=== PATIENT | male | born 1935 | race Caucasian/White ===

== ENCOUNTER 2017-07-22 05:45 | Outpatient (CLI) | payer MEDICARE, OTHER ==
[2017-07-22 07:02] LABS: HEMATOCRIT 35.9 % (39.0-53.0); HEMOGLOBIN 11.6 g/dL (13.0-17.5); MEAN CORPUSCULAR HEMOGLOBIN 32 pg (25-35); MEAN CORPUSCULAR HGB CONC 32 g/dL (31-37); MEAN CORPUSCULAR VOLUME 98 fL (79-100); PLATELET COUNT 117 x10^3/uL (140-400); RED BLOOD COUNT 3.67 x10^6/uL (4.30-5.70); RED CELL DISTRIBUTION WIDTH 16.6 % (11.5-14.5)
[2017-07-22 07:08] LABS: ANION GAP 8 (6-14); BLOOD UREA NITROGEN 24 mg/dL (8-26); CALCIUM 8.4 mg/dL (8.5-10.1); CARBON DIOXIDE 27 mmol/L (21-32); CHLORIDE 109 mmol/L (98-107); CREATININE 1.7 mg/dL (0.7-1.3); GFR 38.7; GLUCOSE 157 mg/dL (70-99); POTASSIUM 4.2 mmol/L (3.5-5.1); SODIUM 144 mmol/L (136-145)
[2017-07-22 07:16] LABS: INR 1.1 (0.8-1.1); PROTHROMBIN TIME PATIENT 13.2 SEC (11.7-14.0)
[2017-07-22] MEDS ORDERED: LIDOCAINE 2% 20 ML VIAL. (07:16)
[2017-07-22] MEDS ORDERED: IODIXANOL 320 MG/ML 100 ML VIAL. (07:16)
[2017-07-22] MEDS ORDERED: fentaNYL PF VIAL 100 MCG/2 ML VIAL (07:56)
[2017-07-22] MEDS ORDERED: MIDAZOLAM HCL/PF 2 MG/2 ML VIAL. (07:56)
[2017-07-22] MEDS: MIDAZOLAM HCL/PF 2 MG/2 ML VIAL. IV (08:30)
[2017-07-22] MEDS: IODIXANOL 320 MG/ML 100 ML VIAL. IART (08:30)
[2017-07-22] MEDS: LIDOCAINE 2% 20 ML VIAL. IJ (08:30)
[2017-07-22] MEDS: fentaNYL PF VIAL 100 MCG/2 ML VIAL IV (08:30)
== END 2017-07-22 14:15 | disposition home or self-care (01) ==
LOC: CCL 05:45
DX: I25.10 Atherosclerotic heart disease of native coronary artery without angina pectoris (principal); I27.20 Pulmonary hypertension, unspecified; E11.42 Type 2 diabetes mellitus with diabetic polyneuropathy; E78.00 Pure hypercholesterolemia, unspecified; E66.9 Obesity, unspecified; F17.200 Nicotine dependence, unspecified, uncomplicated; I48.0 Paroxysmal atrial fibrillation; I11.0 Hypertensive heart disease with heart failure; I50.40 Unspecified combined systolic (congestive) and diastolic (congestive) heart failure; Z98.42 Cataract extraction status, left eye; Z98.41 Cataract extraction status, right eye; Z87.01 Personal history of pneumonia (recurrent); Z98.890 Other specified postprocedural states; Z88.8 Allergy status to other drugs, medicaments and biological substances; Z83.3 Family history of diabetes mellitus; Z82.49 Family history of ischemic heart disease and other diseases of the circulatory system; Z79.82 Long term (current) use of aspirin; Z79.4 Long term (current) use of insulin; Z68.38 Body mass index [BMI] 38.0-38.9, adult
CPT/HCPCS: 36415; 80048; 85027; 85610; 93453; 99152; 99153; C1713; C1769; C1773; C1892; G0269; J1644; J2250; J3010

== ENCOUNTER 2017-09-14 23:59 | Inpatient (IN) | payer MEDICARE, OTHER ==
[2017-09-15 01:21] LABS: POC GLUCOSE 45 mg/dL (70-99)
[2017-09-15] MEDS: PREGABALIN 50 MG CAPSULE PO ×2 (01:40→20:50)
[2017-09-15 02:25] LABS: POC GLUCOSE 70 mg/dL (70-99)
[2017-09-15 08:09] LABS: BASE EXCESS ABG 0 mmol/L (-3-3); HCO3 ABG 26 mmol/L (21-28); PCO2 ABG 48 mmHg (35-46); PH ABG 7.35 (7.35-7.45); PO2 ABG 73 mmHg (65-108); SAT O2 ABG 93 % (92-99)
[2017-09-15 08:25] LABS: POC GLUCOSE 94 mg/dL (70-99)
[2017-09-15] MEDS: FUROSEMIDE 40 MG/4 ML VIAL. IVP (08:55)
[2017-09-15] MEDS ORDERED: hydrALAZINE 20 MG/ML VIAL. IVP (09:00)
[2017-09-15] MEDS ORDERED: DEXTROSE 50% 25 GM / 50ML DISP.SYRIN. IV (09:00)
[2017-09-15] MEDS ORDERED: DOCUSATE SODIUM 100 MG CAPSULE. PO (09:00)
[2017-09-15] MEDS ORDERED: ONDANSETRON PF 4 MG/2 ML VIAL. IV (09:00)
[2017-09-15 09:03] LABS: ADD MAN DIFF? NO
[2017-09-15 09:10] LABS: BASO % 0 % (0-3); EOS # 0.1 x10^3/uL (0.0-0.7); EOS % 2 % (0-3); HEMATOCRIT 31.3 % (39.0-53.0); LYMPH % 18 % (24-48); MEAN CORPUSCULAR HEMOGLOBIN 31 pg (25-35); MEAN CORPUSCULAR HGB CONC 32 g/dL (31-37); MEAN CORPUSCULAR VOLUME 97 fL (79-100); MONO # 0.8 x10^3/uL (0.0-1.1); MONO % 14 % (0-9); NEUT # 3.7 x10^3uL (1.8-7.7); NEUT % 66 % (31-73); PLATELET COUNT 105 x10^3/uL (140-400); RED BLOOD COUNT 3.23 x10^6/uL (4.30-5.70); RED CELL DISTRIBUTION WIDTH 16.9 % (11.5-14.5); WHITE BLOOD COUNT 5.6 x10^3/uL (4.0-11.0)
[2017-09-15 09:23] LABS: ALBUMIN 2.7 g/dL (3.4-5.0); ALBUMIN/GLOBULIN RATIO 0.6 (1.0-1.7); ALK PHOS 88 U/L (46-116); ALT (SGPT) 23 U/L (16-63); ANION GAP 6 (6-14); AST (SGOT) 24 U/L (15-37); BLOOD UREA NITROGEN 22 mg/dL (8-26); BUN/CREATININE RATIO 16 (6-20); CALCIUM 8.5 mg/dL (8.5-10.1); CARBON DIOXIDE 29 mmol/L (21-32); CHLORIDE 110 mmol/L (98-107); CHOLESTEROL 62 mg/dL (0-200); CREATININE 1.4 mg/dL (0.7-1.3); GFR 48.4; GLUCOSE 95 mg/dL (70-99); HDLC 25 mg/dL (40-60); LDLC 20 mg/dL (0-100); NON-HDL CHOLESTEROL 37 mg/dL (0-129); SODIUM 145 mmol/L (136-145); TOTAL BILIRUBIN 0.6 mg/dL (0.2-1.0); TOTAL PROTEIN 7.2 g/dL (6.4-8.2); TRIGLYCERIDES 84 mg/dL (0-150); VLDLC 17 mg/dL (0-40)
[2017-09-15 09:24] LABS: CHOLESTEROL/HDL RATIO 2.5
[2017-09-15 09:30] LABS: DIRECT BILIRUBIN 0.2 mg/dL (0.0-0.2)
[2017-09-15] MEDS: ENOXAPARIN 40 MG/0.4 ML SYRINGE. SQ (10:58)
[2017-09-15] MEDS ORDERED: PERFLUTREN PROTEIN-A MICROSPHR 0.22 MG/ML 3 ML VIAL. IV (11:10)
[2017-09-15] MEDS: INSULIN ASPART 300 UNITS/3 ML INSULN.PEN SQ ×2 (12:00→17:00)
[2017-09-15] MEDS ORDERED: GEMFIBROZIL 600 MG TABLET. PO (12:00)
[2017-09-15 12:05] LABS: POC GLUCOSE 133 mg/dL (70-99)
[2017-09-15 13:52] LABS: MAGNESIUM 2.3 mg/dL (1.8-2.4)
[2017-09-15] MEDS: PROPRANOLOL 40 MG TABLET. PO ×2 (13:56→20:50)
[2017-09-15] MEDS: POTASSIUM CHLORIDE 20 MEQ TABLET.ER. PO (13:57)
[2017-09-15] MEDS: ISOSORBIDE MONONITRATE ER 30 MG TAB.ER.24H PO (13:57)
[2017-09-15] MEDS: TOPIRAMATE 25 MG TABLET. PO ×2 (13:57→20:50)
[2017-09-15] MEDS: ASPIRIN ENTERIC COATED 81 MG TABLET.DR. PO (13:58)
[2017-09-15] MEDS: LISINOPRIL 5 MG TABLET. PO (13:58)
[2017-09-15] MEDS ORDERED: BUMETANIDE 1 MG TABLET. PO (14:00)
[2017-09-15 14:07] LABS: THYROID STIM HORMONE (TSH) 1.502 uIU/mL (0.358-3.74)
[2017-09-15] MEDS: BUMETANIDE 1 MG/4 ML VIAL. IV (15:57)
[2017-09-15] MEDS: OMEGA-3 FATTY ACIDS/FISH OIL 1,000 MG CAPSULE. PO ×2 (15:57→20:50)
[2017-09-15 16:46] LABS: FIO2 ABG 36
[2017-09-15 18:05] LABS: POC GLUCOSE 146 mg/dL (70-99)
[2017-09-15] MEDS: ATORVASTATIN CALCIUM 40 MG TABLET. PO (20:50)
[2017-09-15] MEDS: TAMSULOSIN 0.4 MG CAP.ER.24H. PO (20:50)
[2017-09-15] MEDS: traMADol 50 MG TABLET PO (20:51)
[2017-09-15] MEDS ORDERED: TORSEMIDE 20 MG TABLET. PO (21:00)
[2017-09-15 23:13] LABS: MRSA BY PCR Negative (Negative)
[2017-09-16 06:19] LABS: ADD MAN DIFF? NO
[2017-09-16 06:42] LABS: ANION GAP 7 (6-14); BLOOD UREA NITROGEN 24 mg/dL (8-26); CALCIUM 8.1 mg/dL (8.5-10.1); CARBON DIOXIDE 29 mmol/L (21-32); CHLORIDE 111 mmol/L (98-107); CREATININE 1.4 mg/dL (0.7-1.3); GFR 48.4; GLUCOSE 108 mg/dL (70-99); POTASSIUM 3.7 mmol/L (3.5-5.1); SODIUM 147 mmol/L (136-145)
[2017-09-16 06:49] LABS: BASO % 1 % (0-3); EOS # 0.1 x10^3/uL (0.0-0.7); EOS % 2 % (0-3); HEMATOCRIT 30.2 % (39.0-53.0); HEMOGLOBIN 9.6 g/dL (13.0-17.5); LYMPH # 1.1 x10^3/uL (1.0-4.8); LYMPH % 21 % (24-48); MEAN CORPUSCULAR HEMOGLOBIN 31 pg (25-35); MEAN CORPUSCULAR HGB CONC 32 g/dL (31-37); MEAN CORPUSCULAR VOLUME 97 fL (79-100); MONO # 0.7 x10^3/uL (0.0-1.1); MONO % 14 % (0-9); NEUT # 3.3 x10^3uL (1.8-7.7); NEUT % 63 % (31-73); PLATELET COUNT 109 x10^3/uL (140-400); RED BLOOD COUNT 3.11 x10^6/uL (4.30-5.70); RED CELL DISTRIBUTION WIDTH 17.5 % (11.5-14.5); WHITE BLOOD COUNT 5.2 x10^3/uL (4.0-11.0)
[2017-09-16] MEDS: INSULIN ASPART 300 UNITS/3 ML INSULN.PEN SQ ×3 (07:37→17:00)
[2017-09-16] MEDS: OMEGA-3 FATTY ACIDS/FISH OIL 1,000 MG CAPSULE. PO ×2 (08:27→20:12)
[2017-09-16] MEDS: ISOSORBIDE MONONITRATE ER 30 MG TAB.ER.24H PO (08:28)
[2017-09-16] MEDS: LISINOPRIL 5 MG TABLET. PO (08:28)
[2017-09-16] MEDS: POTASSIUM CHLORIDE 20 MEQ TABLET.ER. PO (08:28)
[2017-09-16] MEDS: ASPIRIN ENTERIC COATED 81 MG TABLET.DR. PO (08:29)
[2017-09-16] MEDS: TOPIRAMATE 25 MG TABLET. PO ×2 (08:29→20:13)
[2017-09-16] MEDS: PROPRANOLOL 40 MG TABLET. PO ×2 (08:29→20:12)
[2017-09-16] MEDS: ENOXAPARIN 40 MG/0.4 ML SYRINGE. SQ (08:31)
[2017-09-16] MEDS: BUMETANIDE 1 MG/4 ML VIAL. IV (08:31)
[2017-09-16 09:23] LABS: POC GLUCOSE 95 mg/dL (70-99)
[2017-09-16] MEDS ORDERED: VANCOMYCIN PER PHARMACY MC (10:30)
[2017-09-16 10:57] LABS: POC GLUCOSE 148 mg/dL (70-99)
[2017-09-16] MEDS: VANCOMYCIN 2 GM in IV DEXTROSE 5% 500 ML IV (12:07)
[2017-09-16] MEDS: metOLazone 2.5 MG TABLET PO (15:23)
[2017-09-16] MEDS: ALBUMIN HUMAN 25% 100 ML IV (16:38)
[2017-09-16 17:43] LABS: POC GLUCOSE 150 mg/dL (70-99)
[2017-09-16] MEDS: BUMETANIDE 2.5 MG/10 ML VIAL. IV (17:53)
[2017-09-16] MEDS: ACETAMINOPHEN 325 MG TABLET. PO (17:56)
[2017-09-16] MEDS: ATORVASTATIN CALCIUM 40 MG TABLET. PO (20:13)
[2017-09-16] MEDS: TAMSULOSIN 0.4 MG CAP.ER.24H. PO (20:13)
[2017-09-16] MEDS: PREGABALIN 50 MG CAPSULE PO (20:14)
[2017-09-16] MEDS: traMADol 50 MG TABLET PO (21:00)
[2017-09-16 21:17] LABS: POC GLUCOSE 166 mg/dL (70-99)
[2017-09-17 04:22] LABS: ADD MAN DIFF? NO
[2017-09-17 05:10] LABS: BASO % 1 % (0-3); EOS # 0.1 x10^3/uL (0.0-0.7); EOS % 2 % (0-3); HEMATOCRIT 28.3 % (39.0-53.0); HEMOGLOBIN 9.2 g/dL (13.0-17.5); LYMPH # 1.1 x10^3/uL (1.0-4.8); LYMPH % 23 % (24-48); MEAN CORPUSCULAR HEMOGLOBIN 32 pg (25-35); MEAN CORPUSCULAR HGB CONC 33 g/dL (31-37); MEAN CORPUSCULAR VOLUME 97 fL (79-100); MONO # 0.7 x10^3/uL (0.0-1.1); MONO % 15 % (0-9); NEUT # 2.9 x10^3uL (1.8-7.7); NEUT % 60 % (31-73); PLATELET COUNT 98 x10^3/uL (140-400); RED BLOOD COUNT 2.91 x10^6/uL (4.30-5.70); RED CELL DISTRIBUTION WIDTH 17.6 % (11.5-14.5); WHITE BLOOD COUNT 4.9 x10^3/uL (4.0-11.0)
[2017-09-17 05:33] LABS: ANION GAP 9 (6-14); BLOOD UREA NITROGEN 28 mg/dL (8-26); CALCIUM 8.5 mg/dL (8.5-10.1); CARBON DIOXIDE 27 mmol/L (21-32); CHLORIDE 109 mmol/L (98-107); CREATININE 1.6 mg/dL (0.7-1.3); GFR 41.5; GLUCOSE 131 mg/dL (70-99); POTASSIUM 3.8 mmol/L (3.5-5.1); SODIUM 145 mmol/L (136-145)
[2017-09-17 07:16] LABS: POC GLUCOSE 123 mg/dL (70-99)
[2017-09-17] MEDS: INSULIN ASPART 300 UNITS/3 ML INSULN.PEN SQ ×3 (07:46→17:53)
[2017-09-17] MEDS: ACETAMINOPHEN 325 MG TABLET. PO (08:35)
[2017-09-17] MEDS: POTASSIUM CHLORIDE 20 MEQ TABLET.ER. PO (08:36)
[2017-09-17] MEDS: LISINOPRIL 5 MG TABLET. PO (08:36)
[2017-09-17] MEDS: PROPRANOLOL 40 MG TABLET. PO ×2 (08:37→21:46)
[2017-09-17] MEDS: TOPIRAMATE 25 MG TABLET. PO ×2 (08:37→21:46)
[2017-09-17] MEDS: ASPIRIN ENTERIC COATED 81 MG TABLET.DR. PO (08:37)
[2017-09-17] MEDS: ENOXAPARIN 40 MG/0.4 ML SYRINGE. SQ (08:37)
[2017-09-17] MEDS: ISOSORBIDE MONONITRATE ER 30 MG TAB.ER.24H PO (08:39)
[2017-09-17] MEDS: OMEGA-3 FATTY ACIDS/FISH OIL 1,000 MG CAPSULE. PO ×2 (08:42→21:45)
[2017-09-17] MEDS ORDERED: BUMETANIDE 2.5 MG/10 ML VIAL. IV (09:00)
[2017-09-17] MEDS: BUMETANIDE 1 MG/4 ML VIAL. IV (09:00)
[2017-09-17] MEDS: VANCOMYCIN PER PHARMACY MC (10:44)
[2017-09-17] MEDS: VANCOMYCIN 1.5 GM in IV 1/2 NORMAL SALINE 500 ML IV (11:34)
[2017-09-17 11:49] LABS: POC GLUCOSE 208 mg/dL (70-99)
[2017-09-17] MEDS ORDERED: VANCOMYCIN 1.5 GM in IV 1/2 NORMAL SALINE 500 ML IV (12:00)
[2017-09-17] MEDS: FUROSEMIDE 40 MG/4 ML VIAL. IVP (13:01)
[2017-09-17 14:29] LABS: HEMOGLOBIN A1C 5.8 % (4.8-5.6)
[2017-09-17 16:53] LABS: POC GLUCOSE 152 mg/dL (70-99)
[2017-09-17 21:13] LABS: POC GLUCOSE 208 mg/dL (70-99)
[2017-09-17] MEDS: TAMSULOSIN 0.4 MG CAP.ER.24H. PO (21:45)
[2017-09-17] MEDS: ATORVASTATIN CALCIUM 40 MG TABLET. PO (21:45)
[2017-09-17] MEDS: PREGABALIN 50 MG CAPSULE PO (21:48)
[2017-09-18] MEDS: traMADol 50 MG TABLET PO (02:09)
[2017-09-18] MEDS: MORPHINE SULFATE 4 MG/ML DISP.SYRIN. IV (02:09)
[2017-09-18 04:29] LABS: ADD MAN DIFF? NO
[2017-09-18 04:33] LABS: BASO % 0 % (0-3); EOS # 0.1 x10^3/uL (0.0-0.7); EOS % 3 % (0-3); HEMATOCRIT 27.8 % (39.0-53.0); LYMPH % 25 % (24-48); MEAN CORPUSCULAR HEMOGLOBIN 31 pg (25-35); MEAN CORPUSCULAR HGB CONC 32 g/dL (31-37); MEAN CORPUSCULAR VOLUME 97 fL (79-100); MONO # 0.5 x10^3/uL (0.0-1.1); MONO % 14 % (0-9); NEUT # 2.3 x10^3uL (1.8-7.7); NEUT % 59 % (31-73); PLATELET COUNT 98 x10^3/uL (140-400); RED BLOOD COUNT 2.88 x10^6/uL (4.30-5.70); RED CELL DISTRIBUTION WIDTH 16.6 % (11.5-14.5)
[2017-09-18 04:47] LABS: ANION GAP 3 (6-14); BLOOD UREA NITROGEN 28 mg/dL (8-26); CALCIUM 8.9 mg/dL (8.5-10.1); CARBON DIOXIDE 33 mmol/L (21-32); CHLORIDE 108 mmol/L (98-107); CREATININE 1.4 mg/dL (0.7-1.3); GFR 48.4; GLUCOSE 167 mg/dL (70-99); POTASSIUM 3.9 mmol/L (3.5-5.1); SODIUM 144 mmol/L (136-145)
[2017-09-18 07:55] LABS: POC GLUCOSE 137 mg/dL (70-99)
[2017-09-18] MEDS: INSULIN ASPART 300 UNITS/3 ML INSULN.PEN SQ ×3 (08:00→17:00)
[2017-09-18] MEDS: ISOSORBIDE MONONITRATE ER 30 MG TAB.ER.24H PO (09:01)
[2017-09-18] MEDS: POTASSIUM CHLORIDE 20 MEQ TABLET.ER. PO (09:01)
[2017-09-18] MEDS: ASPIRIN ENTERIC COATED 81 MG TABLET.DR. PO (09:01)
[2017-09-18] MEDS: OMEGA-3 FATTY ACIDS/FISH OIL 1,000 MG CAPSULE. PO ×2 (09:01→21:23)
[2017-09-18] MEDS: PROPRANOLOL 40 MG TABLET. PO ×2 (09:02→21:24)
[2017-09-18] MEDS: LISINOPRIL 5 MG TABLET. PO (09:02)
[2017-09-18] MEDS: TOPIRAMATE 25 MG TABLET. PO ×2 (09:02→21:25)
[2017-09-18] MEDS: FUROSEMIDE 40 MG/4 ML VIAL. IVP ×2 (09:03→14:27)
[2017-09-18] MEDS: ENOXAPARIN 40 MG/0.4 ML SYRINGE. SQ (09:04)
[2017-09-18 11:54] LABS: POC GLUCOSE 168 mg/dL (70-99)
[2017-09-18 16:55] LABS: POC GLUCOSE 186 mg/dL (70-99)
[2017-09-18] MEDS: PREGABALIN 50 MG CAPSULE PO (21:24)
[2017-09-18] MEDS: TAMSULOSIN 0.4 MG CAP.ER.24H. PO (21:24)
[2017-09-18] MEDS: ATORVASTATIN CALCIUM 40 MG TABLET. PO (21:24)
[2017-09-18 21:33] LABS: POC GLUCOSE 185 mg/dL (70-99)
[2017-09-19 05:40] LABS: ANION GAP 8 (6-14); BLOOD UREA NITROGEN 35 mg/dL (8-26); CALCIUM 8.5 mg/dL (8.5-10.1); CARBON DIOXIDE 31 mmol/L (21-32); CHLORIDE 106 mmol/L (98-107); CREATININE 1.6 mg/dL (0.7-1.3); GFR 41.5; GLUCOSE 164 mg/dL (70-99); POTASSIUM 3.8 mmol/L (3.5-5.1); SODIUM 145 mmol/L (136-145)
[2017-09-19] MEDS: INSULIN ASPART 300 UNITS/3 ML INSULN.PEN SQ ×3 (08:00→17:30)
[2017-09-19] MEDS: ENOXAPARIN 40 MG/0.4 ML SYRINGE. SQ (09:05)
[2017-09-19] MEDS: OMEGA-3 FATTY ACIDS/FISH OIL 1,000 MG CAPSULE. PO ×2 (09:05→21:15)
[2017-09-19] MEDS: TOPIRAMATE 25 MG TABLET. PO ×2 (09:06→21:29)
[2017-09-19] MEDS: ASPIRIN ENTERIC COATED 81 MG TABLET.DR. PO (09:06)
[2017-09-19] MEDS: LISINOPRIL 5 MG TABLET. PO (09:06)
[2017-09-19] MEDS: POTASSIUM CHLORIDE 20 MEQ TABLET.ER. PO (09:06)
[2017-09-19] MEDS: FUROSEMIDE 40 MG/4 ML VIAL. IVP ×2 (09:07→15:00)
[2017-09-19] MEDS: ISOSORBIDE MONONITRATE ER 30 MG TAB.ER.24H PO (09:07)
[2017-09-19] MEDS: PROPRANOLOL 40 MG TABLET. PO ×2 (09:08→21:29)
[2017-09-19 12:34] LABS: POC GLUCOSE 136 mg/dL (70-99)
[2017-09-19 12:34] LABS: POC GLUCOSE 234 mg/dL (70-99)
[2017-09-19 17:36] LABS: POC GLUCOSE 168 mg/dL (70-99)
[2017-09-19] MEDS: PREGABALIN 50 MG CAPSULE PO (21:16)
[2017-09-19] MEDS: TAMSULOSIN 0.4 MG CAP.ER.24H. PO (21:29)
[2017-09-19] MEDS: ATORVASTATIN CALCIUM 40 MG TABLET. PO (21:29)
[2017-09-19 21:48] LABS: POC GLUCOSE 210 mg/dL (70-99)
[2017-09-19] MEDS: LORazepam 1 MG TABLET PO (22:16)
[2017-09-20 05:02] LABS: ADD MAN DIFF? NO
[2017-09-20 05:08] LABS: BASO % 1 % (0-3); EOS # 0.1 x10^3/uL (0.0-0.7); EOS % 3 % (0-3); HEMATOCRIT 27.3 % (39.0-53.0); HEMOGLOBIN 8.9 g/dL (13.0-17.5); LYMPH % 26 % (24-48); MEAN CORPUSCULAR HEMOGLOBIN 31 pg (25-35); MEAN CORPUSCULAR HGB CONC 33 g/dL (31-37); MEAN CORPUSCULAR VOLUME 96 fL (79-100); MONO # 0.6 x10^3/uL (0.0-1.1); MONO % 14 % (0-9); NEUT # 2.2 x10^3uL (1.8-7.7); NEUT % 56 % (31-73); PLATELET COUNT 106 x10^3/uL (140-400); RED BLOOD COUNT 2.85 x10^6/uL (4.30-5.70); RED CELL DISTRIBUTION WIDTH 16.5 % (11.5-14.5); WHITE BLOOD COUNT 3.9 x10^3/uL (4.0-11.0)
[2017-09-20 05:30] LABS: ANION GAP 5 (6-14); BLOOD UREA NITROGEN 36 mg/dL (8-26); CARBON DIOXIDE 34 mmol/L (21-32); CHLORIDE 106 mmol/L (98-107); CREATININE 1.5 mg/dL (0.7-1.3); GFR 44.7; GLUCOSE 165 mg/dL (70-99); POTASSIUM 3.5 mmol/L (3.5-5.1); SODIUM 145 mmol/L (136-145)
[2017-09-20] MEDS: LORazepam 1 MG TABLET PO (05:57)
[2017-09-20] MEDS: INSULIN ASPART 300 UNITS/3 ML INSULN.PEN SQ ×2 (08:00→12:30)
[2017-09-20 08:22] LABS: POC GLUCOSE 139 mg/dL (70-99)
[2017-09-20] MEDS: ISOSORBIDE MONONITRATE ER 30 MG TAB.ER.24H PO (08:29)
[2017-09-20] MEDS: OMEGA-3 FATTY ACIDS/FISH OIL 1,000 MG CAPSULE. PO (08:29)
[2017-09-20] MEDS: TOPIRAMATE 25 MG TABLET. PO (08:29)
[2017-09-20] MEDS: ASPIRIN ENTERIC COATED 81 MG TABLET.DR. PO (08:29)
[2017-09-20] MEDS: PROPRANOLOL 40 MG TABLET. PO (08:30)
[2017-09-20] MEDS: LISINOPRIL 5 MG TABLET. PO (08:30)
[2017-09-20] MEDS: POTASSIUM CHLORIDE 20 MEQ TABLET.ER. PO (08:30)
[2017-09-20] MEDS: FUROSEMIDE 40 MG/4 ML VIAL. IVP (08:31)
[2017-09-20] MEDS: ENOXAPARIN 40 MG/0.4 ML SYRINGE. SQ (08:32)
[2017-09-20 11:56] LABS: POC GLUCOSE 274 mg/dL (70-99)
== END 2017-09-20 14:49 | disposition home or self-care (01) | DRG 291 ==
LOC: 1 WEST ICU 23:59 → 2 NORTH 09-15 19:51
PROVIDERS: Family Medicine
PROC: 5A09357 Assistance with Respiratory Ventilation, Less than 24 Consecutive Hours, Continuous Positive Airway Pressure (ICD-10-PCS; principal; 2017-09-14)
DX: I13.0 Hypertensive heart and chronic kidney disease with heart failure and stage 1 through stage 4 chronic kidney disease, or unspecified chronic kidney disease (principal); I50.43 Acute on chronic combined systolic (congestive) and diastolic (congestive) heart failure; J96.21 Acute and chronic respiratory failure with hypoxia; N17.9 Acute kidney failure, unspecified; I27.29 Other secondary pulmonary hypertension; E11.22 Type 2 diabetes mellitus with diabetic chronic kidney disease; E66.01 Morbid (severe) obesity due to excess calories; B96.89 Other specified bacterial agents as the cause of diseases classified elsewhere; D63.8 Anemia in other chronic diseases classified elsewhere; E11.42 Type 2 diabetes mellitus with diabetic polyneuropathy; E11.649 Type 2 diabetes mellitus with hypoglycemia without coma; Z68.35 Body mass index [BMI] 35.0-35.9, adult; E78.5 Hyperlipidemia, unspecified; G47.33 Obstructive sleep apnea (adult) (pediatric); I25.10 Atherosclerotic heart disease of native coronary artery without angina pectoris; I27.81 Cor pulmonale (chronic); I48.0 Paroxysmal atrial fibrillation; J44.9 Chronic obstructive pulmonary disease, unspecified; N18.3 Chronic kidney disease, stage 3 (moderate); S80.822A Blister (nonthermal), left lower leg, initial encounter; S80.821A Blister (nonthermal), right lower leg, initial encounter; X58.XXXA Exposure to other specified factors, initial encounter; Y93.89 Activity, other specified; Y92.89 Other specified places as the place of occurrence of the external cause; Y99.8 Other external cause status; Z82.49 Family history of ischemic heart disease and other diseases of the circulatory system; G89.29 Other chronic pain; H26.9 Unspecified cataract; M19.90 Unspecified osteoarthritis, unspecified site; Z88.8 Allergy status to other drugs, medicaments and biological substances; Z98.49 Cataract extraction status, unspecified eye; I87.8 Other specified disorders of veins
CPT/HCPCS: 36415; 36600; 71045; 80048; 80053; 80061; 82248; 82805; 82962; 83036; 83735; 84443; 85025; 87040; 87641; 93306; 94660; 97110-GP; 97116-GP; 97162-GP; 97166-GO; 97530-GP; 97535-GO; J1650; J1815; J1940; J2270; J3370; J3490; P9046